=== PATIENT | female | born 1975 | race Caucasian/White ===

== ENCOUNTER 2016-12-22 17:51 | Emergency (ER) | payer SELFPAY ==
--- NOTE | 2016-12-24 09:12 | ER ---
ADMIT: 12/22/2016 RM/LOC: ER [facility] MR#: [id number] [address] [id number] LARRY GARCIA [address] [place] [address] Emergency Room Report SEX: F AGE: 41 : 1975 DATE: 12/22/2016 ADDENDUM: CHIEF COMPLAINT: Headache. HISTORY OF PRESENT ILLNESS: This is a 41-year-old who has a history of migraine. She took Excedrin to see if that would help, but it did not help. In fact, she feels more nauseated. COURSE IN THE EMERGENCY ROOM: I am giving her Toradol, Phenergan, and Ativan. She has received all these medications before. She wants to go home after she has injections. CLINICAL IMPRESSION: Migraine headache. DISPOSITION: Stable at discharge. We will follow up as needed. BASILIA Khanna / Abhinav Crouch MD / abiodunl JOB #: [id number] CC: Abhinav Crouch MD, Attending Physician Husam Vegas MD, Family Physician
== END 2016-12-22 18:16 | disposition home or self-care (01) ==
LOC: ER 17:51
DX: G43.909 Migraine, unspecified, not intractable, without status migrainosus (principal); F41.9 Anxiety disorder, unspecified; F17.210 Nicotine dependence, cigarettes, uncomplicated; Z79.899 Other long term (current) drug therapy

== ENCOUNTER 2017-03-28 16:20 | Emergency (ER) | payer SELFPAY ==
--- NOTE | 2017-03-31 16:46 | ER ---
ADMIT: 03/28/2017 RM/LOC: ER [facility] MR#: [id number] [facility] [address] [place] [id number] LAINEY GARCIA [address] [place] [id number] Emergency Room Report SEX: F AGE: 41 : 1975 DATE: 03/28/2017 HISTORY OF PRESENT ILLNESS: Lainey is a 41-year-old female, who presents to the emergency room with a headache, which is a migraine headache for 1 day. She said her cousin yesterday in the emergency room and there was a lot of stress. This is similar to prior headache. Sensitivity to light. Multiple migraine headaches. REVIEW OF SYSTEMS: Positive for depression and anxiety. PAST MEDICAL HISTORY: Migraine. She has had a gastric bypass. MEDICATIONS: She takes: 1. Latuda. 2. Lamictal. 3. Prozac. 4. Xanax. 5. Tramadol. ALLERGIES: NO ALLERGIES. SOCIAL HISTORY: She is a smoker and drinks alcohol occasionally. PHYSICAL EXAMINATION: VITAL SIGNS: Blood pressure 97/59, heart rate is 69, respirations 16, temp is 98.1, and O2 sats 97% on room air. GENERAL: Moderately anxious. Has some photophobia. NECK: Supple. RESPIRATIONS: No distress. ABDOMEN: Obese. Nontender. SKIN: Good color. EXTREMITIES: Well perfused. NEUROLOGIC: Oriented x4. Cranial nerves II through XII tested and normal. She was given Toradol, Phenergan, and Ativan with a bus van driver to take her home. CLINICAL IMPRESSION: Migraine headache, acute. Discharged with instructions and follow up with PCP. BASILIA Larsen / Abhinav Crouch MD / gino JOB #: [id number] CC: Abhinav Crouch MD, Attending Physician Husam Vegas MD, Family Physician
== END 2017-03-28 17:00 | disposition home or self-care (01) ==
LOC: ER 16:20
DX: G43.909 Migraine, unspecified, not intractable, without status migrainosus (principal); F17.200 Nicotine dependence, unspecified, uncomplicated; F32.9 Major depressive disorder, single episode, unspecified; F41.9 Anxiety disorder, unspecified; Z90.49 Acquired absence of other specified parts of digestive tract; Z98.84 Bariatric surgery status; Z79.899 Other long term (current) drug therapy; Z98.890 Other specified postprocedural states